=== PATIENT | male | born 1955 | race Native Hawaiian/Other Pacific Islander ===

== ENCOUNTER 2017-07-12 07:37 | Emergency (ER) | payer OTHER ==
[2017-07-12 07:37] VITALS: BMI 27.6
[2017-07-12 07:51] VITALS: RESP 18
[2017-07-12] MEDS ORDERED: Lidocaine 5% Patch TD STA (08:16)
[2017-07-12] MEDS ORDERED: Lidocaine 5% Patch TD ONE (08:45)
--- NOTE | 2017-07-12 09:13 | C.PDOC ---
History Of Present Illness 62 y/o male presents to the ER complaining of intermittent lower back pain which has been present for the past 1 month and became gradually worse yesterday. Patient states that the pain is worse with walking. Patient reports that he took Motrin yesterday. Denies having urinary/ stool incontinence, hematuria and dysuria. Time Seen by Provider: 07/12/17 07:50 Chief Complaint (Nursing): Back Pain History Per: Patient History/Exam Limitations: no limitations Onset/Duration Of Symptoms: Days Current Symptoms Are (Timing): Still Present Severity: Moderate Past Medical History Reviewed: Historical Data, Nursing Documentation, Vital Signs Vital Signs: Last Vital Signs Temp 97.7 F 07/12/17 07:47 Pulse 68 07/12/17 07:47 Resp 18 07/12/17 07:47 BP 151/90 H 07/12/17 07:47 Pulse Ox 100 07/12/17 09:52 - Medical History PMH: HTN, Hypercholesterolemia Denies: Chronic Kidney Disease Other Surgeries: Hx of surgeries Family History: States: No Known Family Hx - Social History Hx Alcohol Use: Yes Hx Substance Use: No - Immunization History Hx Tetanus Toxoid Vaccination: No Hx Influenza Vaccination: No Hx Pneumococcal Vaccination: No Review Of Systems Except As Marked, All Systems Reviewed And Found Negative. Constitutional: Negative for: Fever, Chills Musculoskeletal: Positive for: Back Pain (lower back pain) Physical Exam - Physical Exam Appears: Non-toxic, No Acute Distress Skin: Normal Color, Warm, Dry, Diaphoretic Head: Atraumatic, Normacephalic Eye(s): bilateral: Normal Inspection Nose: Normal Oral Mucosa: Moist Neck: Supple Chest: Symmetrical Cardiovascular: Rhythm Regular Respiratory: Normal Breath Sounds, No Rales, No Rhonchi, No Wheezing Gastrointestinal/Abdominal: Normal Exam, Bowel Sounds ((+) bowel sounds), Soft, No Tenderness, No Guarding, No Rebound Back: Paraspinal Tenderness (paralumbar tenderness), Straight Leg Raising ((-) straight leg raising) Extremity: Normal ROM Neurological/Psych: Oriented x3, Normal Speech Gait: Steady ED Course And Treatment O2 Sat by Pulse Oximetry: 100 (RA) Pulse Ox Interpretation: Normal Medical Decision Making Medical Decision Making: Impression: Back Pain Plan: --Lidoderm Patch --Toradol IV --Tylenol PO -- x- Ray - Lumbar Spine Updates: Preliminary reading of X- Ray - Lumbar Spine shows no fracture. On re- evaluation, patient states that his symptoms have improved. Patient has been discharged, instructed to follow up with PMD in 2 days and return to ER if symptoms worsen. Disposition Counseled Patient/Family Regarding: Studies Performed, Diagnosis, Need For Followup, Rx Given - Disposition Referrals: Francheska Nuñez MD [Staff Provider] - Disposition: HOME/ ROUTINE Disposition Time: 09:49 Condition: IMPROVED Additional Instructions: follow up with your doctor in 2 days call to make an appointment take medications as prescribed return to ER if symptoms worsens or progress Prescriptions: Cyclobenzaprine [Cyclobenzaprine HCl] 10 mg PO TID PRN #12 tab PRN Reason: Muscle Spasm Lidocaine 5% [Lidoderm] 1 ea TD DAILY PRN #12 patch PRN Reason: Pain, Moderate (4-7) Naproxen [Naprosyn] 500 mg PO BID PRN #16 tab PRN Reason: Pain, Moderate (4-7) traMADol [Ultram] 50 mg PO TID PRN #12 tab PRN Reason: Pain, Moderate (4-7) Instructions: Low Back Pain in Adults Forms: General Discharge Instructions, [facility] (Cymro), Work Excuse - Clinical Impression Clinical Impression: Low back pain - Scribe Statement The provider has reviewed the documentation as recorded by the Chris Ruiz Provider Attestation: All medical record entries made by the Judyibkati were at my direction and personally dictated by me. I have reviewed the chart and agree that the record accurately reflects my personal performance of the history, physical exam, medical decision making, and the department course for this patient. I have also personally directed, reviewed, and agree with the discharge instructions and disposition.
[2017-07-12 09:57] VITALS: BP 126/74; PULSE 78; TEMP 98; O2SAT 98
--- NOTE | 2017-07-12 10:07 | RAD ---
PROCEDURE: Radiographs of the Lumbar Spine. HISTORY: Back pain COMPARISON: No prior. FINDINGS: BONES: No acute compression fractures no retropulsed fragments. Vertebral bodies exhibit normal stature. Vertebral bodies and facets normally aligned. DISC SPACES: There appears to be a bilateral pars interarticularis defects L5-S1 level with grade 1 anterior subluxation L5 over S1. Disc space narrowing with endplate eburnation. The exit foramina appear stenotic. Facets are hypertrophic. Small marginal anterior osteophyte formation present at this level There is minor posterior disc space narrowing seen at the L4-L5 and L3-L4 levels. Rain disc space heights relatively maintained. Small marginal anterolateral osteophyte formation present at this level. OTHER FINDINGS: None. 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 . There is fairly significant disc space narrowing at this level with bilateral foraminal stenosis. . Minor degenerative spondylosis at the remaining levels
== END 2017-07-12 09:57 | disposition home or self-care (01) ==
LOC: C.ER 07:37
DX: M54.5 Low back pain (principal)
CPT/HCPCS: 72100; 82948; 96372; 99284; J1885

== ENCOUNTER 2017-07-24 10:37 | Emergency (ER) | payer OTHER ==
[2017-07-24 10:37] VITALS: BMI 27.6
[2017-07-24 10:48] VITALS: RESP 18; TEMP 98.6; O2SAT 98
[2017-07-24] MEDS ORDERED: Oxycodone/Acetaminophen 5/325 mg Tab PO STA (11:31)
[2017-07-24] MEDS ORDERED: Oxycodone/Acetaminophen 5/325 mg Tab ONE (11:35)
--- NOTE | 2017-07-24 11:40 | C.PDOC ---
History Of Present Illness Patient is a 62 y/o male presenting to the ER complaining of low back pain for one month. Patient reports he was in the ER a week ago and the XRay was unremarkable. He followed up with Dr. Nuñez and he was prescribed naproxen, flexeril and lidoderm patch. Patient states he is unable to sleep, lay down or sit still. He denies any incontinence, numbness or weakness. He states he has an appointment for MRI today, but he is unable to lay down for long periods of time because of the pain. Time Seen by Provider: 07/24/17 11:22 Chief Complaint (Nursing): Back Pain History Per: Patient History/Exam Limitations: no limitations Onset/Duration Of Symptoms: Days Current Symptoms Are (Timing): Still Present Past Medical History Reviewed: Historical Data, Nursing Documentation, Vital Signs Vital Signs: Last Vital Signs Temp 98.6 F 07/24/17 10:45 Pulse 75 07/24/17 11:48 Resp 18 07/24/17 11:48 BP 141/86 07/24/17 11:48 Pulse Ox 98 07/24/17 12:21 - Medical History PMH: HTN, Hypercholesterolemia Denies: Chronic Kidney Disease Surgical History: No Surg Hx Family History: States: No Known Family Hx - Social History Hx Alcohol Use: Yes Hx Substance Use: No - Immunization History Hx Tetanus Toxoid Vaccination: No Hx Influenza Vaccination: No Hx Pneumococcal Vaccination: No Review Of Systems Except As Marked, All Systems Reviewed And Found Negative. Genitourinary: Negative for: Incontinence Musculoskeletal: Positive for: Back Pain (Low back) Neurological: Negative for: Weakness, Numbness Physical Exam - Physical Exam Appears: Non-toxic, No Acute Distress Skin: Normal Color, Warm, Dry Head: Atraumatic, Normacephalic Eye(s): bilateral: Normal Inspection Oral Mucosa: Moist Neck: Supple Chest: Symmetrical Cardiovascular: Rhythm Regular Respiratory: Normal Breath Sounds, No Rales, No Rhonchi, No Wheezing Back: Paraspinal Tenderness (Midline ), Other (Noted lidoderm patches on both sides of lumbar back. ) Extremity: Normal ROM Neurological/Psych: Oriented x3, Normal Speech Gait: Steady ED Course And Treatment O2 Sat by Pulse Oximetry: 98 (RA) Pulse Ox Interpretation: Normal Progress Note: Orders. Percocet. Valium 5mg PO Disposition - Disposition Referrals: Francheska Nuñez MD [Staff Provider] - Disposition: HOME/ ROUTINE Disposition Time: 11:38 Condition: STABLE Additional Instructions: Follow up with your PMD within 1-2 days. Return to ED if feel worse. Prescriptions: oxyCODONE/Acetaminophen [Percocet 5/325 mg Tab] 1 tab PO QID PRN #10 tab PRN Reason: Pain diaZEpam [Valium] 2 mg PO TID #15 tab Instructions: Low Back Pain in Adults Forms: [facility] (Estonian), Work Excuse - Clinical Impression Clinical Impression: Low back pain - PA / CVIR TECH / Resident Statement MD/DO has reviewed & agrees with the documentation as recorded. - Scribe Statement The provider has reviewed the documentation as recorded by the Scribkati Vides All medical record entries made by the Judyibkati were at my direction and personally dictated by me. I have reviewed the chart and agree that the record accurately reflects my personal performance of the history, physical exam, medical decision making, and the department course for this patient. I have also personally directed, reviewed, and agree with the discharge instructions and disposition.
[2017-07-24 11:49] VITALS: BP 141/86; PULSE 75
== END 2017-07-24 11:49 | disposition home or self-care (01) ==
LOC: C.ER 10:37
DX: M54.5 Low back pain (principal)

== ENCOUNTER 2018-03-23 07:37 | Emergency (ER) | payer OTHER ==
[2018-03-23 07:37] VITALS: BMI 27.6
[2018-03-23 07:49] VITALS: RESP 18; TEMP 98.4; O2SAT 97
--- NOTE | 2018-03-23 08:14 | C.PDOC ---
History Of Present Illness 62 y/o male presents to the ER complaining of neck pain which has been present for the past 4 days. Patient states that he was doing work on a ladder 5 days ago. Patient reports that the pain has become worse over the past 3 days. He notes that he has pain with movement. He took some Tylenol without relief. Denies having fever, chills, headache,CP, SOB, nausea, and vomiting. Time Seen by Provider: 03/23/18 07:44 Chief Complaint (Nursing): Back Pain History Per: Patient History/Exam Limitations: no limitations Onset/Duration Of Symptoms: Days Current Symptoms Are (Timing): Still Present Severity: Moderate Past Medical History Reviewed: Historical Data, Nursing Documentation, Vital Signs Vital Signs: Last Vital Signs Temp 98.4 F 03/23/18 07:47 Pulse 97 H 03/23/18 07:47 Resp 18 03/23/18 07:47 BP 132/87 03/23/18 07:47 Pulse Ox 97 03/23/18 07:47 - Medical History PMH: HTN, Hypercholesterolemia Denies: Chronic Kidney Disease Other Surgeries: Hx of surgeries Family History: States: No Known Family Hx - Social History Hx Alcohol Use: Yes Hx Substance Use: No - Immunization History Hx Tetanus Toxoid Vaccination: Yes Hx Influenza Vaccination: Yes Hx Pneumococcal Vaccination: No Review Of Systems Except As Marked, All Systems Reviewed And Found Negative. Constitutional: Negative for: Fever, Chills Cardiovascular: Negative for: Chest Pain Respiratory: Negative for: Shortness of Breath Gastrointestinal: Negative for: Nausea, Vomiting Musculoskeletal: Positive for: Neck Pain Physical Exam - Physical Exam Appears: Non-toxic, No Acute Distress Skin: Normal Color, Warm, Dry Head: Atraumatic, Normacephalic Eye(s): bilateral: Normal Inspection Nose: Normal Oral Mucosa: Moist Neck: Decreased ROM, No Midline Cervical Tenderness, Paracervical Tenderness, Supple Chest: Symmetrical Cardiovascular: Rhythm Regular Respiratory: Normal Breath Sounds, No Rales, No Rhonchi, No Wheezing Gastrointestinal/Abdominal: Normal Exam, Soft, No Tenderness, No Guarding, No Rebound Neurological/Psych: Oriented x3, Normal Speech, Normal Motor (normal upper body motor strength) ED Course And Treatment O2 Sat by Pulse Oximetry: 97 (RA) Pulse Ox Interpretation: Normal Progress Note: Treated with valium and toradol. On re-evaluation feeling better, in ni distress Reassessment Condition: Improved Medical Decision Making Medical Decision Making: Plan: --Toradol IM --Valium PO --[id number] Spine Disposition Counseled Patient/Family Regarding: Diagnosis, Need For Followup, Rx Given - Disposition Referrals: Adonis Gannon MD [Staff Provider] - Disposition: HOME/ ROUTINE Disposition Time: 09:00 Condition: GOOD Additional Instructions: Follow up with PMD for further evaluation Prescriptions: Cyclobenzaprine [Cyclobenzaprine HCl] 10 mg PO BID PRN #10 tab PRN Reason: Muscle Spasm Naproxen [Naprosyn] 1 tab PO BID PRN #25 tab PRN Reason: Pain Instructions: Cervical Muscle Strain Forms: [facility] (Icelandic), Work Excuse - POA Present On Arrival: None - Clinical Impression Clinical Impression: Cervical sprain - PA / APPEALS WRITER / Resident Statement MD/DO has reviewed & agrees with the documentation as recorded. - Scribe Statement The provider has reviewed the documentation as recorded by the Chris Ruiz Provider Attestation All medical record entries made by the Judyibe were at my direction and personally dictated by me. I have reviewed the chart and agree that the record accurately reflects my personal performance of the history, physical exam, medical decision making, and the department course for this patient. I have also personally directed, reviewed, and agree with the discharge instructions and disposition.
[2018-03-23 09:11] VITALS: BP 116/78; PULSE 90
--- NOTE | 2018-03-23 12:36 | RAD ---
Date of service: 03/23/2018 PROCEDURE: Cervical Spine Radiographs. HISTORY: Pain. COMPARISON: None available. FINDINGS: BONES: Reversal of the anatomic lordosis with kyphosis. Degree: Mild. DISC SPACES: Disc degenerative change component by non marginal anterior osteophyte formation. Findings most notable at C4-5, C5-6 and C6-7. SOFT TISSUES: Normal. No prevertebral soft tissue swelling. OTHER FINDINGS: None. IMPRESSION: Mild degenerative change. No acute findings
== END 2018-03-23 09:10 | disposition home or self-care (01) ==
LOC: C.ER 07:37
DX: S13.4XXA Sprain of ligaments of cervical spine, initial encounter (principal); X58.XXXA Exposure to other specified factors, initial encounter
CPT/HCPCS: 72040; 96372; 99283; J1885